=== PATIENT | female | born 1980 | race Caucasian/White ===

== ENCOUNTER → 2022-04-06 08:14 | Outpatient (CLI) | payer BC, SELFPAY ==
--- NOTE | ~2022-04-06 | MMUS_ITS ---
EXAMINATION: MM diagnostic jordan BI w derick, US breast BI complete HISTORY: Right breast lump TECHNIQUE: Additional 3-D tomosynthesis images of were performed and synthetic 2-D images were genera anca. CAD analysis was submitted and interpreted. High resolution breast ultrasound was performed. COMPARISON: None BREAST PARENCHYMAL COMPOSITION: The breasts are extremely dense, which lowers the sensitivity of mamm ography. FINDINGS: MAMMOGRAPHIC FINDINGS: There is suggestion of an approximately 2.2 centimeter partially circumscribed opacity in the anterio r aspect of the upper central right breast at the area of clinical complaint of breast lump. Scattered bilateral low-density circumscribed additional masses are suggested. No irregular mass or architectural distortion, malignant calcified thickening or retraction of either breast is evident. ULTRASOUND: There are multiple bilateral circumscribed sonolucent and very hypoechoic lesions with through transm ission and posterior enhancement, measuring up to 4 cm on the right at 12:00 3 cm from the nipple at area of clinical complaint of breast lump, measuring up to 3.65 cm on the left at 10:00 6 cm from the nipple. No suspicious mass lesion or shadowing of either breast is detected. IMPRESSION: 1. Benign findings 2. Routine mammographic screening is recommended BI-RADS Category 2: Benign finding(s). Reviewed, dictated and finalized at location A. IMPRESSION: 1. Benign findings 2. Routine mammographic screening is recommended BI-RADS Category 2: Benign finding(s).
== END ==
PROVIDERS: PCP Family Medicine; Visit Provider Nurse Practitioner Family
DX: N63.15 Unspecified lump in the right breast, overlapping quadrants (principal); N63.22 Unspecified lump in the left breast, upper inner quadrant
CPT/HCPCS: 76641; 77062; 77066; G0279

== ENCOUNTER 2024-05-23 14:04 | Outpatient (CLI) | payer BC, SELFPAY ==
--- NOTE | ~2024-05-23 | MM_ITS ---
EXAMINATION: MM screening jordan BI w derick HISTORY: Screening mammogram TECHNIQUE: Craniocaudal and mediolateral oblique 3-D tomosynthesis images were obtained and synthetic 2-D images were generated. CAD analysis was submitted and interpreted. COMPARISON: 04/06/2022 BREAST PARENCHYMAL COMPOSITION:Dense: The breasts are extremely dense, which lowers the sensitivity o f mammography. FINDINGS: Multiple bilateral low-density masses are present, compatible multiple bilateral cysts. No suspicious mass, calcification, or architectural distortion are identified in either breast to sugges t malignancy. There has been no suspicious interval change. IMPRESSION: No mammographic evidence of malignancy. Recommend routine screening mammography in one year. BI-RADS Category 2: Benign finding(s). Reviewed, dictated and finalized at location . [facility]
== END 2024-05-23 14:05 | disposition home or self-care (01) ==
LOC: ANHIMG 14:08
PROVIDERS: PCP Family Medicine; Visit Provider Physician Assistant
DX: Z12.31 Encounter for screening mammogram for malignant neoplasm of breast (principal)
CPT/HCPCS: 77063; 77067